=== PATIENT | male | born 1990 ===

== ENCOUNTER 2019-06-29 08:06 | Outpatient (CLI) | payer BC ==
--- NOTE | 2019-06-29 09:34 | ULT ---
RIGHT UPPER QUADRANT ULTRASOUND: HISTORY: Abdominal pain. COMPARISON: None. TECHNIQUE: Utilizing a multihertz transducer, sonographic imaging of the right upper quadrant is performed in th e longitudinal and transverse plane. FINDINGS: The head and proximal pancreatic body have a normal echotexture. The remainder of the pancreas is ob scured by bowel gas. Visualized hepatic parenchyma has a normal echotexture. No hepatic masses or intrahepatic biliary di latation. The contour of the hepatic margin is maintained. Right hepatic lobe measures 16.5 cm. Main portal vein is patent. Appropriate directional flow. Common bile duct diameter is 0.2 cm. No sonographic evidence of cholelithiasis, gallbladder wall thickening, or pericholecystic fluid. Negative Do's sign. The right kidney has a normal cortical echotexture. No hydronephrosis. The right kidney measures 10 .6 x 5.3 x 5.8 cm. IMPRESSION: Unremarkable right upper quadrant ultrasound. POS: [facility]
== END 2019-06-29 08:07 | disposition home or self-care (01) ==
LOC: BICULT 08:06
PROVIDERS: ATTEND Internal Medicine Gastroenterology
DX: K21.9 Gastro-esophageal reflux disease without esophagitis (principal); R10.9 Unspecified abdominal pain; K76.0 Fatty (change of) liver, not elsewhere classified
CPT/HCPCS: 76705